=== PATIENT | male | born 1995 | race Hispanic/Latino ===

== ENCOUNTER 2017-09-30 06:17 | Emergency (ER) | payer BC ==
[~2017-09-30] VITALS: Ht 175.3 cm; Wt 79.4 kg
[~2017-09-30 06:17] MED LIST: BACL10TA PO; BISA10SU50 RC; CARB100T4 PO; CHOL100011 PO; DIAZ1KIT7 RC; ESCI10TA PO; FAMO20TA5 PO; LACT1CAP61 PO; OXYC-470 PO; PROP20TA PO; TRAZ150T57 PO; [UNRECOGNIZED DRUG - CODE] PO
--- NOTE | 2017-09-30 07:10 | ER.PDOC ---
General Chief Complaint: General Complaint Stated Complaint: PULLED OUT FEEDING TUBE TRAVEL OUT OF US: No Time seen by MD: 06:30 Source: family Exam Limitations: clinical condition History of Present Illness Initial Comments Pt pulled out his gastrostomy feeding tube this AM. Timing/Duration: 1 hour Allergies: Coded Allergies: No Known Allergies (Unverified , 12/19/15) Home Meds Reported Medications Carbamazepine (CARBAMAZEPINE) 100 Mg Tab.chew, 100 MG PO QID, TAB.CHEW 12/19/15 Cholecalciferol (Vitamin D3) (VITAMIN D) 1,000 Unit Capsule, 1000 UNIT PO DAILY , CAPSULE 12/19/15 Escitalopram Oxalate (ESCITALOPRAM OXALATE) 10 Mg Tablet, 1 TAB PO DAILY, #30 TAB 3 Refills 12/19/15 L. Rhamnosus Gg/Inulin (CULTURELLE CAPSULE) 1 Each Cap.sprink, 1 EACH PO DAILY 12/19/15 Baclofen (BACLOFEN) 10 Mg Tablet, 1 TAB PO TID, #90 TAB 2 Refills 12/19/15 Propranolol Hcl (PROPRANOLOL HCL) 20 Mg Tablet, 1 TAB PO TID, #60 TAB 2 Refills 12/19/15 Trazodone Hcl (TRAZODONE HCL) 150 Mg Tablet, 150 MG PO HS, TABLET 12/19/15 Diazepam (DIAZEPAM) 1 Each Kit, 1 EACH RC DAILY, KIT 12/19/15 Oxycodone Hcl (OXYCODONE HCL) 5 Mg Tablet, 5 MG PO DAILY Y for PAIN, TABLET 12/19/15 Famotidine (FAMOTIDINE) 20 Mg Tablet, 1 TAB PO BID, #60 TAB 5 Refills 12/19/15 Psyllium Husk/Aspartame (Metamucil Sugar-Free Powder) 3.4 Gram/5.8 Gram Powder, 283 GM PO DAILY 12/19/15 Bisacodyl (MAGIC BULLET) 10 Mg Supp.rect, 10 MG RC DAILY, SUPP.RECT 12/19/15 Past Medical History Medical History: other (Traumatic brain injury.) Surgical History: other (Gastrostomy.) Family History Significant Family History: no pertinent family hx Social History Smoking: non-smoker Alcohol Use: none Drug Use: none Review of Systems Constitutional: no symptoms reported EENTM: no symptoms reported Respiratory: no symptoms reported Cardiovascular: no symptoms reported Gastrointestinal: no symptoms reported Genitourinary: no symptoms reported Musculoskeletal: no symptoms reported Skin: no symptoms reported Physical Exam General Appearance: No Apparent Distress, WD/WN, Other (Non verbal.) EENT: eyes nml inspection, nml ENT inspection, pharynx nml Neck: Non-Tender, Full Range of Motion, Supple Respiratory: chest non-tender, lungs clear, normal breath sounds, no respiratory distress CVS: reg rate & rhythm, no murmur, no gallop, pulses nml Gastrointestinal: Normal Bowel Sounds, No Organomegaly, No Pulsatile Mass, Non Tender, Other (LUQ gastrostomy stoma. 16 gauge Fr witt inserted.) Back: Normal Inspection, No CVA Tenderness Extremities: Non-Tender, No Pedal Edema Neurologic/Psychiatric: Alert Progress Progress 16 Fr witt inserted through the gastrostomy stoma. Departure Time of Disposition: 07:13 Disposition: 01 HOME, SELF-CARE Impression: Primary Impression: Dislodged gastrostomy tube Condition: Stable Referrals: ARACELY PIZARRO MD (PCP) PRIMARY CARE PROVIDER Additional Instructions: Pt was referred to Dr Durbin for evaluation. Duration or Time Spent with Pa: 30mins MITCH CLIFTON MD Sep 30, 2017 07:10
--- NOTE | 2017-09-30 07:15 | NUR ---
DR JAGRUTI CLIFTON ON PHONE WITH DR CHAND
--- NOTE | 2017-09-30 07:16 | NUR ---
DR JAGRUTI CHAND IN THE ED AT THIS TIME
--- NOTE | 2017-09-30 07:52 | DIREP ---
PROCEDURE:XRAY ABDOMEN SINGLE VW COMPARISON:[facility], [place], SMALL BOWEL SERIES, 12/22/2015, 08:54 PM. [facility], [place], XRAY CHEST SINGLE VW, 01/01/2016, 08:36 AM. [facility], [place], XR BARIUM SWALLOW - MODIFIED, 05/05/2016, 10:18 AM. [facility], [place], XRAY ABDOMEN SINGLE VW, 12/28/2015, 08:38 AM. INDICATIONS:verify placement of tube gastro down feeding tube FINDINGS: Inferior abdomen and pelvis are not included on the film. BOWEL GAS PATTERN:Oral contrast is present in the left lower abdomen, apparently injected through the patient's feeding tube. Contrast appears to be within a loop of jejunum. No extravasated contrast is visible. CALCIFICATIONS:None significant. LUNG BASES:Clear. BONES:Normal. OTHER:No additional findings. CONCLUSION:Oral contrast appears to be within the jejunum in the left lower abdomen. Dictated by: Nicho Barreto M.D. on 09/30/2017 at 07:43 AM
[2017-09-30 08:11] VITALS: BP 137/55
[2017-09-30 08:12] VITALS: BP 138/55
== END 2017-09-30 08:12 | disposition home or self-care (01) ==
LOC: ER 06:17
DX: K94.23 Gastrostomy malfunction (principal); Y83.8 Other surgical procedures as the cause of abnormal reaction of the patient, or of later complication, without mention of misadventure at the time of the procedure
CPT/HCPCS: 43760; 51702; 74018; 99284; 74000

== ENCOUNTER → 2017-11-11 | Outpatient (CLI) | payer BC ==
[2017-11-11 10:51] LABS: BASOPHIL % 0.1 % (0.0-0.2); HEMOGLOBIN 13.9 g/dL (13.9-16.3); LYMPHOCYTES # 0.5 10^3/uL (1.0-4.8); LYMPHOCYTES % 3.6 % (24.0-44.0); MEAN CELL HGB 30.1 pg (26-34); MEAN CELL HGB CONCENTRATION 33.9 g/dL (33-37); MEAN CORP VOLUME 88.7 fL (78-100); MEAN PLATELET VOLUME 10.2 fL (7.8-11.0); MONOCYTES # 0.6 10^3/uL (0.3-0.8); MONOCYTES % 4.3 % (5.0-12.0); NEUTROPHILS % 91.9 % (41.0-85.0); RED CELL DISTRIBUTION WIDTH 12.6 % (11.5-14.5); WHITE BLOOD CELL 14.1 10^3/uL (4.5-11.0)
--- NOTE | 2017-11-11 11:08 | DIREP ---
PROCEDURE:CHEST 2 VIEWS COMPARISON:[facility], CR, XRAY CHEST SINGLE VW, 01/01/2016, 08:36 AM. INDICATIONS:COUGH-CHEST PAIN- EPIGASTRIC PAIN FINDINGS: LUNGS/PLEURA:No significant pulmonary parenchymal abnormalities. No effusions. The lungs are clear. No pneumonia, heart failure or effusions are seen. VASCULATURE:Normal. Unremarkable pulmonary vasculature. CARDIAC:Normal. No cardiac silhouette abnormality or cardiomegaly. MEDIASTINUM:Normal. No visible mass or adenopathy. BONES:Normal. No fracture or visible bony lesion. OTHER:Increased gas in the abdomen below the diaphragms along with retained fecal material. CONCLUSION:No change, no active disease. Dictated by: Ronny Johnston MD on 11/11/2017 at 11:06 AM
[2017-11-11 11:13] LABS: CALCIUM 9.4 mg/dL (8.4-10.5); CARBON DIOXIDE 24.8 mmol/L (20.0-32)
[2017-11-11 14:14] LABS: DIFFERENTIAL COMMENT NORMAL; LYMPHOCYTE 4 % (25-36); MONOCYTE 1 % (3-9); SEGMENTED NEUTROPHILS 95 % (31-76)
== END | disposition home or self-care (01) ==
LOC: RAD 10:28
PROVIDERS: ATTEND Pediatrics
DX: R07.9 Chest pain, unspecified (principal); R10.13 Epigastric pain; R53.81 Other malaise; R05 Cough
CPT/HCPCS: 36415; 71046; 80053; 85025; 85651; 86140; 86677

== ENCOUNTER 2017-11-20 04:17 | Day surgery (SDC) | payer BC ==
[~2017-11-20] VITALS: Ht 177.8 cm; Wt 72.6 kg
[~2017-11-20 04:17] MED LIST changes: +BACL20TA PO; +CARB200T PO; +ESCI10TA10 PO; +PANT40TA3 PO
[2017-11-20] MEDS ORDERED: LACTATED RINGERS 1,000 ML ONE (05:07)
[2017-11-20] MEDS ORDERED: LACTATED RINGERS 1,000 ML IV SCH (06:00)
[2017-11-20 06:25] VITALS: BP 115/76
[2017-11-20] MEDS ORDERED: TYLENOL ONE (07:21)
[2017-11-20] MEDS ORDERED: VERSED ONE (07:22)
[2017-11-20] MEDS ORDERED: LIDOCAINE 2% VIAL ONE (07:27)
[2017-11-20] MEDS ORDERED: SUBLIMAZE ONE ×2 (07:28→09:05)
[2017-11-20] MEDS ORDERED: DIPRIVAN IV ONE (07:28)
[2017-11-20 09:35] VITALS: BP 126/65
[2017-11-20 09:50] VITALS: BP 119/74
[2017-11-20 10:05] VITALS: BP_SYST 114; BP_SYST 119; BP_DIAS 80
--- NOTE | 2017-11-20 10:16 | DIREP ---
PROCEDURE:XRAY ABDOMEN SINGLE VW COMPARISON:[facility], CR, XRAY ABDOMEN SINGLE VW, 09/30/2017, 07:30 AM. INDICATIONS:POST PED TUBE INSERTION FINDINGS: Lower abdomen and pelvis are not included on the film. BOWEL GAS PATTERN:Oral contrast is present in the right lower abdomen, apparently injected through the patient's feeding tube. Contrast appears to be within a loop of jejunum. No extravasated contrast is visible. CALCIFICATIONS:None significant. LUNG BASES:Clear. BONES:Normal. OTHER:No additional findings. CONCLUSION: 1. Limited for the lower abdomen and pelvis. Contrast is identified and proximal loops of jejunum. Dictated by: Eulogio Bhatti MD on 11/20/2017 at 10:13 AM
[2017-11-20 10:35] VITALS: BP 138/88
[2017-11-20 10:50] VITALS: BP 122/64
--- NOTE | 2017-11-20 12:37 | OPH ---
DATE OF SURGERY: PREOPERATIVE DIAGNOSES: 1. History of feeding tube malfunction. 2. History of traumatic brain injury. POSTOPERATIVE DIAGNOSES: 1. Feeding tube malfunction with replacement. 2. History of traumatic brain injury. SURGEON: Kumar Durbin DO QUALITY ASSURANCE MONITOR FINAL: OR staff. ANESTHESIA: Monitored anesthesia care by Rosibel Villalba CRNA. PROCEDURES PERFORMED: 1. Exchange of jejunal feeding tube. 2. Percutaneous endoscopy via jejunostomy site. SPECIMENS: None. ESTIMATED BLOOD LOSS: 2 mL. DESCRIPTION OF PROCEDURE: The patient is a 22-year-old male known from previous evaluation. Prior to procedure, informed consent was obtained. At time of procedure, he was taken to the operative suite and placed in supine position. After initial sedation, we elected not to perform the EGD. The existing 16-Canadian Yanes that was in the jejunal feeding tract was removed. Sequential Hegar dilators were used to dilate the tract. To confirm patency, esophagogastroduodenoscope was advanced through the jejunostomy site by the jejunum which was inflated to allow exposure. A repeat dilation was performed and attempts were made and subsequently a 22-Canadian jejunal feeding tube was passed through the percutaneous opening. It was cut to length and softened. Once it was advanced to depth, the balloon was inflated with approximately 7 mL of saline and withdrawn. It was secured with the flange. Next, contrast was diluted and pushed down through the lumen. It was secured with a dressing. The patient was subsequently delivered to the recovery room. An x-ray was performed. There was noted to be no signs of leak and there was noted to be contrast in the distal small bowel. The patient appeared to tolerate this procedure well. There were no acute complications noted. Kumar Durbin DO DR: CHAD/dara JOB# [id number] CC: Marika Bueno MD [facility] CENTERMarino
== END 2017-11-20 11:00 | disposition home or self-care (01) | DRG 394 ==
LOC: SURG 04:17
PROVIDERS: ATTEND Surgery
DX: K94.13 Enterostomy malfunction (principal); K21.9 Gastro-esophageal reflux disease without esophagitis; G40.89 Other seizures; Y83.9 Surgical procedure, unspecified as the cause of abnormal reaction of the patient, or of later complication, without mention of misadventure at the time of the procedure; Z79.899 Other long term (current) drug therapy; Z98.890 Other specified postprocedural states; Z93.4 Other artificial openings of gastrointestinal tract status; Z79.01 Long term (current) use of anticoagulants; Z87.820 Personal history of traumatic brain injury
CPT/HCPCS: 49451; 74018; J2001; J2250; J3010 ×2; J3490; J7120; 74000

== ENCOUNTER → 2019-02-28 | Outpatient (CLI) | payer MEDICARE, MEDICAID ==
[2019-02-28 12:11] LABS: BASOPHIL % 0.1 % (0.0-0.2); EOSINOPHIL % 0.5 % (0.0-5.0); HEMOGLOBIN 15.1 g/dL (13.9-16.3); LYMPHOCYTES # 0.6 10^3/uL (1.0-4.8); LYMPHOCYTES % 7.2 % (24.0-44.0); MEAN CELL HGB 30.4 pg (26-34); MEAN CELL HGB CONCENTRATION 33.6 g/dL (33-37); MEAN CORP VOLUME 90.7 fL (78-100); MEAN PLATELET VOLUME 11.6 fL (7.8-11.0); MONOCYTES # 1.2 10^3/uL (0.3-0.8); MONOCYTES % 14.1 % (5.0-12.0); NEUTROPHIL # 6.5 10^3/uL (1.8-7.7); WHITE BLOOD CELL 8.3 10^3/uL (4.5-11.0)
[2019-02-28 12:31] LABS: CALCIUM 9.4 mg/dL (8.4-10.5); CARBON DIOXIDE 29.3 mmol/L (20.0-32)
--- NOTE | 2019-02-28 13:37 | DIREP ---
PROCEDURE:XR ABDOMEN 2 VIEWS COMPARISON:[facility], CT, CT-CHEST W ABD W PELVIS W/ CONTRAST, 12/22/2015, 04:57 PM. [facility], CR, XRAY ABDOMEN SINGLE VW, 11/20/2017, 09:28 AM. INDICATIONS:N/V, ABD PAIN TECHNIQUE:Flat and upright views of the abdomen are provided. FINDINGS: BOWEL GAS PATTERN:Diffuse small bowel dilatation, measuring up to 5.5 cm. Air-fluid levels identified on upright film. A percutaneous enteric catheter projects over the abdomen. CALCIFICATIONS:None significant. LUNG BASES:Clear. BONES:Normal. OTHER:No additional findings. CONCLUSION: 1. Findings concerning for small bowel obstruction. Dictated by: Luis A Johnston MD on 02/28/2019 at 01:39 PM
== END | disposition home or self-care (01) ==
LOC: RAD 11:35
PROVIDERS: ATTEND Pediatrics
DX: R10.13 Epigastric pain (principal); E86.0 Dehydration
CPT/HCPCS: 36415; 74019; 80053; 85025; 86140; 86677

== ENCOUNTER 2019-03-01 05:45 | Inpatient (IN) | payer MEDICARE, MEDICAID ==
[~2019-03-01] VITALS: Ht 172.7 cm; Wt 63.8 kg
[2019-03-01 06:26] VITALS: BP 127/84
[2019-03-01] MEDS ORDERED: NS 1000ML 1,000 ML IV ONE (07:00)
[2019-03-01] MEDS ORDERED: TEGRETOL PO SCH (09:00)
[2019-03-01] MEDS ORDERED: PEPCID PO SCH (09:00)
[2019-03-01] MEDS ORDERED: VITAMIN D PO SCH (09:00)
[2019-03-01] MEDS ORDERED: INDERAL PO PRN (09:00)
[2019-03-01] MEDS ORDERED: LIORESAL PO SCH (09:00)
[2019-03-01] MEDS ORDERED: OXY-IR PO PRN (09:00)
[2019-03-01] MEDS ORDERED: BISAC-EVAC RC SCH (09:00)
[2019-03-01] MEDS ORDERED: METAMUCIL PO SCH (09:00)
[2019-03-01] MEDS ORDERED: PROTONIX PO SCH (09:00)
[2019-03-01] MEDS ORDERED: CeleXA PO SCH (09:00)
--- NOTE | 2019-03-01 09:44 | NUR ---
MEDS THIS NURSE REMOVED AND TICKED OFF MEDS FOR PATIENT. BEFORE ADMINISTERING TO PT ALL MEDS EXCEPT IV FLUIDS WERE D/C. UNDID RESULTS TECHNICIAN.
[2019-03-01] MEDS: D5W-1/2 NS/KCL 20MEQ 1,000 ML IV SCH ×3 (09:58→21:54)
[2019-03-01 10:06] LABS: BASOPHIL % 0.1 % (0.0-0.2); EOSINOPHIL # 0.1 10^3/uL (0.0-0.2); EOSINOPHIL % 0.9 % (0.0-5.0); HEMOGLOBIN 14.5 g/dL (13.9-16.3); LYMPHOCYTES # 0.5 10^3/uL (1.0-4.8); LYMPHOCYTES % 6.7 % (24.0-44.0); MEAN CELL HGB 30.8 pg (26-34); MEAN CELL HGB CONCENTRATION 33.6 g/dL (33-37); MEAN CORP VOLUME 91.5 fL (78-100); MEAN PLATELET VOLUME 11.4 fL (7.8-11.0); MONOCYTES % 12.8 % (5.0-12.0); NEUTROPHIL # 6.2 10^3/uL (1.8-7.7); NEUTROPHILS % 79.2 % (41.0-85.0); RED CELL DISTRIBUTION WIDTH 14.8 % (11.5-14.5); WHITE BLOOD CELL 7.9 10^3/uL (4.5-11.0)
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
--- NOTE | 2019-03-01 10:17 | DIREP ---
PROCEDURE:CT ABDOMEN/PELVIS W/O CONTRAST COMPARISON:[facility], CT, CT-CHEST W ABD W PELVIS W/ CONTRAST, 12/22/2015, 04:57 PM. INDICATIONS:N/V TECHNIQUE:Axial images were created through the abdomen and pelvis without intravenous contrast material. Oral contrast was administered. Sagittal and coronal reconstructions were performed from source images. FINDINGS: LOWER CHEST:Dependant atelectasis. LIVER: No hepatic lesion. BILIARY: Gallbladder is unremarkable, no intra or extrahepatic biliary dilation. PANCREAS: Unremarkable. SPLEEN: Normal, nonenlarged. KIDNEYS: No renal mass. No hydronephrosis or collecting system stone identified. ADRENALS: Normal. AORTA/VASCULAR: Normal. No aneurysm. RETROPERITONEUM: No adenopathy or mass. BOWEL/MESENTERY: Gastrojejunostomy tube. The jejunum is dilated measuring up to 4 cm. Oral contrast is seen within the stomach and proximal/dilated jejunum. The transition point is in the left mid quadrant at soft tissue changes related to a previous jejunostomy tube site. Appendix normal. ABDOMINAL WALL: Normal. No mass or hernia. URINARY BLADDER: Inherently limited evaluation of the wall; unremarkable for level of distension. PELVIS: Prostatic tissue present. No adenopathy. BONES: No bony lesion or fracture. OTHER: No free air. Small free fluid in the pelvis. CONCLUSION: 1. Dilated jejunum with transition point in the left mid abdomen at previous percutaneous jejunostomy site. Findings are suspicious for developing obstruction. Dictated by: Clarissa Chino MD on 03/01/2019 at 10:08 AM
[2019-03-01 10:44] LABS: CALCIUM 9.1 mg/dL (8.4-10.5); CARBON DIOXIDE 31.2 mmol/L (20.0-32)
--- NOTE | 2019-03-01 11:52 | DIREP ---
PROCEDURE:XRAY ABDOMEN SINGLE VW COMPARISON:[facility], CT, CT ABD/PELVIS W/O, 03/01/2019, 09:17 AM. [facility], CR, XRAY ABDOMEN SINGLE VW, 11/20/2017, 09:28 AM. [facility], CR, XRAY ABDOMEN SINGLE VW, 09/30/2017, 07:30 AM. INDICATIONS:NGT placement FINDINGS: BOWEL GAS PATTERN:Dilated small bowel loops throughout the abdomen, measuring up to 5.5 cm. Distal aspect of nasogastric catheter terminates above the GE junction. Gastrojejunostomy catheter terminates overlying the left lower quadrant. CALCIFICATIONS:None significant. LUNG BASES:Clear. BONES:Degenerative change without evidence of acute osseus abnormality. OTHER:No additional findings. CONCLUSION: 1. Findings consistent with small bowel obstruction. 2. Nasogastric catheter terminates above the GE junction. Recommend advancement. 3. Gastrojejunostomy catheter terminates overlying the left lower quadrant. Dictated by: Luis A Johnston MD on 03/01/2019 at 11:46 AM
[2019-03-01 12:06] LABS: DIFFERENTIAL COMMENT NORMAL; EOSINOPHIL 1 % (1-4); LYMPHOCYTE 5 % (25-36); MONOCYTE 13 % (3-9); SEGMENTED NEUTROPHILS 81 % (31-76)
[2019-03-01 14:01] VITALS: BP 121/71
--- NOTE | 2019-03-01 14:14 | DIREP ---
PROCEDURE:XRAY ABDOMEN SINGLE VW COMPARISON:[facility], CR, XRAY ABDOMEN SINGLE VW, 03/01/2019, 11:16 AM. [facility], CR, XRAY ABDOMEN SINGLE VW, 11/20/2017, 09:28 AM. INDICATIONS:NGT placement FINDINGS: BOWEL GAS PATTERN:Dilated small bowel loops with scattered air-fluid levels throughout the abdomen. Interval advancement of nasogastric catheter now terminating overlying the left upper quadrant, presumably within the stomach. Gastrojejunostomy catheter terminates overlying the left lower quadrant. CALCIFICATIONS:None significant. LUNG BASES:Clear. BONES:Degenerative change without evidence of acute osseus abnormality. OTHER:No additional findings. CONCLUSION: 1. Interval advancement of nasogastric catheter, now terminating overlying the left upper quadrant. Presumably within the stomach. 2. Findings concerning for small bowel obstruction. 3. Gastrojejunostomy in stable position. Dictated by: Luis A Johnston MD on 03/01/2019 at 02:12 PM
[2019-03-01] MEDS: ATIVAN IV PRN ×2 (15:57→21:53)
[2019-03-01] MEDS ORDERED: MORPHINE SULFATE IV PRN (16:00)
--- NOTE | 2019-03-01 18:02 | HPH ---
ADMIT DATE: 03/01/2019 The patient is being admitted as an inpatient. PRIMARY CARE PROVIDER: Marika Bueno MD ADMITTING DIAGNOSES: 1. Abdominal pain with nausea and vomiting. 2. Partial small bowel obstruction. 3. Dehydration. 4. History of anoxic brain injury. CHIEF COMPLAINT: He is still throwing up. HISTORY OF PRESENT ILLNESS: As follows: The patient is a 23-year-old young gentleman who has a history of anoxic brain injury and had a tracheostomy with a G-tube placement in the past. He no longer has the tracheostomy, but he has a G-tube for feeds and for increasing calories, but he was doing fine and his last hospitalization was over 3 years ago. Family reports that he had eaten some foods on Thursday and he started to have increasing belly pain and he was just moaning and then he started to have nausea and nonbilious vomiting. He did that a couple of times and family stopped his G-tube feeds and started him on Pedialyte. It seemed like he was tolerating some of it; however, he started to have increasing vomiting again. No fever has been reported. He has had hard bowel movements lately and less bowel movements as well. No syncope reported. No falls, no trauma. When he did come to see me in my office again, I had done labs on him, which looked okay at that time. He was clinically dehydrated, however and family opted to do Pedialyte for the next 24 hours, but since he is having more emesis now, I am putting him in the hospital. PAST MEDICAL HISTORY: Again, he does have anoxic brain injury. PAST SURGICAL HISTORY: He had a tracheostomy. He had actually a jejunostomy placement and then now he has a G-tube placement for G-tube feeds. ALLERGIES: No known drug allergies. SOCIAL HISTORY: He does not smoke. No illicit drugs, no alcohol reported. FAMILY HISTORY: Noncontributory for this admission. MEDICATIONS: Medications he is currently on include propranolol, Metamucil, Protonix, oxycodone at night, Celexa, vitamin D3, Tegretol, baclofen. PHYSICAL EXAMINATION: VITAL SIGNS: When he first came in, temperature was 98.4, pulse rate was 69, respirations 18, blood pressure is 112/84, O2 sats of 96% on room air. My physical exam is as follows: GENERAL: When I saw him, he is moaning and it appears like he is having a little bit of pain. HEENT: Oropharynx is clear. NECK: Supple. HEART: S1, S2 audible. No murmurs. LUNGS: Clear bilaterally. ABDOMEN: He had some hypoactive bowel sounds. Abdomen was a bit distended. G-tube site looks good. EXTREMITIES: No pitting edema. No rashes, no petechiae, no purpura. LABORATORY DATA: Did labs. CBC looks okay. Chemistry panel looked okay. LFTs were normal. Coags were normal. IMAGING STUDIES: X-rays of the abdomen showed some dilated small bowel noted and was suspicious for a small bowel obstruction. ASSESSMENT: We have this young gentleman with increasing nausea, vomiting and dehydration. I will go ahead and keep him n.p.o. and get a CT scan of the abdomen and pelvis with p.o. contrast and if he does have a bowel obstruction, I will go ahead and put second NG tube down to low intermittent suction and see how he does throughout the day. Marika Bueno MD DR: YAN/dara JOB# [id number]
--- NOTE | 2019-03-01 18:47 | NUR ---
report received report from offgoing shift
[2019-03-01 19:36] VITALS: BP 123/87
[2019-03-01] MEDS ORDERED: PROTONIX IV IV SCH (21:00)
[2019-03-01 23:45] VITALS: BP 120/80
[2019-03-02] MEDS: ATIVAN IV PRN (03:55)
[2019-03-02 05:13] VITALS: BP 116/69
[2019-03-02 08:43] VITALS: BP 117/58
--- NOTE | 2019-03-02 09:34 | DIREP ---
PROCEDURE:XR ABDOMEN 2 VIEWS COMPARISON:[facility], CR, XRAY ABDOMEN 2VW, 02/28/2019, 11:46 AM. [facility], CR, XRAY ABDOMEN 2VW, 11/16/2017, 12:15 PM. INDICATIONS:N/V TECHNIQUE:Flat and upright views of the abdomen are provided. FINDINGS: BOWEL GAS PATTERN:Borderline small bowel dilatation, relatively decompressed when compared to prior study. No definite air-fluid levels are identified. Nasogastric catheter terminates overlying the left upper quadrant, however, the side port terminates likely above the GE junction. Advancement is recommended. Gastrojejunostomy catheter is identified terminating overlying the left lower quadrant. Residual oral contrast seen within the colon. CALCIFICATIONS:None significant. LUNG BASES:Clear. BONES:Normal. OTHER:No additional findings. CONCLUSION: 1. Borderline small bowel dilatation with relative decompression when compared to prior study. Oral contrast now progressed to the colon. 2. Recommend advancement of nasogastric catheter. Side-port terminates above the GE junction. 3. Stable position of balloon retention gastrojejunostomy catheter. Dictated by: Luis A Johnston MD on 03/02/2019 at 09:30 AM
[2019-03-02] MEDS: D5W-1/2 NS/KCL 20MEQ 1,000 ML IV SCH (10:36)
--- NOTE | 2019-03-02 11:19 | NUR ---
NG TUBE NG TUBE DC'D AT THIS TIME PER DR. PIZARRO'S ORDERS, TIP INTACT. PT HAS BEEN WITHOUT ANY ABDOMINAL PAIN OR NAUSEA. PARENTS AT BEDSIDE.
--- NOTE | 2019-03-02 11:24 | NUR ---
FEEDINGS EXPLAINED TO PARENTS THAT DR. PIZARRO WANTS PATIENT TO RESUME HIS ROUTINE G TUBE FEEDINGS; THEY REPLIED THAT THEY WILL HAVE TO HAVE SOMEONE TO BRING THE FORMULA OR THEY WILL HAVE TO GO GET IT.
[2019-03-02 12:50] VITALS: BP 114/67
--- NOTE | 2019-03-02 14:23 | DSH ---
DATE OF DISCHARGE: 03/02/2019 ADMITTING DIAGNOSES: Nausea, vomiting with dehydration and partial small-bowel obstruction with history of anoxic brain injury. DISCHARGE DIAGNOSIS: Resolved partial small-bowel obstruction. HOSPITAL COURSE: The patient is a 23-year-old young gentleman who does have a history of anoxic brain injury and had a G-tube as well as a jejunostomy tube for feeds. He was having increasing nonbilious vomiting for several days now and this did not improve with just simple hydration at home. X-rays did show dilated small bowels suspicious for partial small-bowel obstruction versus full complete small-bowel obstruction and his belly was distended. White count was normal. I went ahead and put him in the hospital and stuck an NG tube down for decompression and we did get over a liter of intestinal content, but I continued the low intermittent suction throughout the day. I gave him some IV fluids for hydration. Overnight, he has done very well. X-rays this morning does show that his small bowel dilatation has remarkably improved and contrast has made it all the way down through his colon. So he is tolerating liquids and no longer throwing up and he does have very good bowel sounds at this point, his abdomen is soft. So we got rid of the NG tube late this morning and at this point, he is tolerating p.o. intake. He will be discharged later on today and he will continue his home medications and I have asked the family to go ahead and start him back on his G-tube feeds only right now which is one can with each feed for the next couple of days and then advance as tolerated, back to his usual maintenance feeds. He is to follow up with me next Thursday where I will reassess and see how he is doing at that point. Marika Bueno MD DR: YAN/dara JOB# [id number]
[2019-03-02 15:30] VITALS: BP 114/67
--- NOTE | 2019-03-02 16:00 | NUR ---
Discharge Patient discharged home with his parents. Teaching provided and a packet given to the parent's. Picc line pulled, catheter intact. Pressure held for 10 minutes with rolled gauze, opsite placed. Patient tolerated removal well. Patient to the exit in his own wheelchair, with this RN to transport belongings on a cart. Mother took responsibility for Patient's Hygiene needs. Peg/gastric feeding tube intact.
== END 2019-03-02 15:00 | disposition home or self-care (01) | DRG 390 ==
LOC: MS 05:45
PROVIDERS: ADMIT Pediatrics; ATTEND Pediatrics
PROC: 0D9670Z Drainage of Stomach with Drainage Device, Via Natural or Artificial Opening (ICD-10-PCS; principal; 2019-03-02)
DX: K56.600 Partial intestinal obstruction, unspecified as to cause (principal); E86.0 Dehydration; Z87.820 Personal history of traumatic brain injury; Z93.1 Gastrostomy status; Z93.4 Other artificial openings of gastrointestinal tract status
CPT/HCPCS: 36415; 36569; 74018; 74019; 74176; 80048; 80053; 80076; 82948; 85025; 85610; 86140; 86677; C9113; G0378; J2060; J2270; J7030; J7070; Q9963

== ENCOUNTER 2019-03-03 23:32 | Emergency (ER) | payer MEDICARE, MEDICAID ==
[~2019-03-03] VITALS: Ht 177.8 cm; Wt 63.5 kg
[2019-03-03 23:41] VITALS: BP 125/80
--- NOTE | 2019-03-03 23:47 | ER.PDOC ---
General Chief Complaint: Requesting Medical Care Stated Complaint: VOMITING Time seen by MD: 23:46 Source: family Exam Limitations: clinical condition History of Present Illness Initial Comments Pt was discharged yesterday for observation after several episodes of vomiting, no obstruction was found. Today he vomited once two hours ago, but, not after that. Had regular BM's today Severity/Quality: mild Associated Symptoms (vomiting): mild vomiting Prior symptoms/Treatment: Similar symptoms previous, Recenly Seen, Treated by Doctor, Recently Hospitalized Allergies: Coded Allergies: No Known Allergies (Unverified , 11/18/17) Home Meds Reported Medications Pantoprazole Sodium (PROTONIX) 40 Mg Tablet.dr, 1 TAB PO DAILY, #30 TAB 5 Refills 11/18/17 Escitalopram Oxalate (LEXAPRO) 10 Mg Tablet, 1 TAB PO DAILY, #90 TAB 3 Refills 11/18/17 Baclofen (BACLOFEN) 20 Mg Tablet, 25 MG PO QID, TABLET 11/18/17 Carbamazepine (TEGRETOL) 200 Mg Tablet, 1 TAB PO QID, #60 TAB 1 Refill 11/18/17 Cholecalciferol (Vitamin D3) (VITAMIN D) 1,000 Unit Capsule, 1000 UNIT PO DAILY, CAPSULE 12/19/15 Propranolol Hcl (PROPRANOLOL HCL) 20 Mg Tablet, 1 TAB PO DAILY24 PRN for HYPERTENSION, #60 TAB 2 Refills 12/19/15 Trazodone Hcl (TRAZODONE HCL) 150 Mg Tablet, 150 MG PO HS, TABLET 12/19/15 Oxycodone Hcl (OXYCODONE HCL) 5 Mg Tablet, 5 MG PO DAILY PRN for PAIN, TABLET 12/19/15 Famotidine (FAMOTIDINE) 20 Mg Tablet, 1 TAB PO DAILY24, #60 TAB 5 Refills 12/19/15 Psyllium Husk/Aspartame (Metamucil Sugar-Free Powder) 3.4 Gram/5.8 Gram Powder, 283 GM PO DAILY 12/19/15 Bisacodyl (MAGIC BULLET) 10 Mg Supp.rect, 10 MG RC DAILY, SUPP.RECT 12/19/15 Vital Signs First Vital Signs Date Time Temp Pulse Resp B/P (MAP) Pulse Ox O2 Delivery O2 Flow Rate FiO2 03/02/19 15:30 210.0 85 03/03/19 23:41 18 125/80 (95) 95 Room Air Last Vital Signs Date Time Temp Pulse Resp B/P (MAP) Pulse Ox O2 Delivery O2 Flow Rate FiO2 03/03/19 23:41 99.7 90 18 03/03/19 23:41 95 Room Air 03/03/19 23:41 125/80 (95) Past Medical History Surgical History: other Social History Drug Use: none Gastrointestinal: see HPI All Other Systems: Reviewed and Negative Physical Exam General Appearance: No Apparent Distress, WD/WN HEENT: PERRL/EOMI, Normal ENT Inspection, TMs Normal, Pharynx Normal Neck: Non-Tender, Full Range of Motion, Supple, Normal Inspection Respiratory: chest non-tender, lungs clear, normal breath sounds, no respiratory distress, no accessory muscle use Cardiovascular: Normal Peripheral Pulses, Regular Rate, Rhythm, No Edema, No Gallop, No JVD, No Murmur Gastrointestinal: Normal Bowel Sounds, No Organomegaly, Non Tender, Soft, Other (there is a PEG tube) Back: Normal Inspection, No CVA Tenderness, No Vertebral Tenderness Extremities: Normal Range of Motion, Non-Tender, Normal Inspection, No Pedal Edema, No Calf Tenderness, Normal Capillary Refill, Pelvis Stable Neurologic/Psychiatric: wet pan operator II-XII NML as Tested, No Motor/Sensory Deficits, Alert, Normal Mood/Affect, Oriented x 3 Skin: Normal Color, Warm/Dry Lymphatic: No Adenopathy Results/Orders Results/Orders Orders - LEV BORGES MD Ondansetron (Zofran Odt) (03/04/19 00:00) Xr Abd 1v (03/04/19 00:00) Ondansetron (Zofran Odt) (03/04/19 00:08) Vital Signs Date Time Temp Pulse Resp B/P (MAP) Pulse Ox O2 Delivery O2 Flow Rate FiO2 03/03/19 23:41 99.7 90 18 03/03/19 23:41 99.7 90 18 95 Room Air 03/03/19 23:41 99.7 90 18 125/80 (95) 95 Room Air 03/02/19 15:30 210.0 85 Administered Medications Medications (Trade) Dose Ordered Sig/Chelly Route PRN Reason Start Time Stop Time Status Last Admin Dose Admin Ondansetron HCl (Zofran Odt) 4 mg STAT STAT SL 03/04/19 00:00 03/04/19 00:04 DC 03/04/19 00:13 4 MG Departure Time of Disposition: 01:02 Disposition: 02 XFER SHT-TRM HOSP Impression: Primary Impression: Vomiting Additional Impression: Small bowel obstruction Condition: Stable Referrals: ARACELY PIZARRO MD (PCP) PRIMARY CARE PROVIDER Duration or Time Spent with Pa: 20 Problem Qualifiers LEV BORGES MD Mar 03, 2019 23:46
[2019-03-04] MEDS ORDERED: ZOFRAN ODT SL STA
[2019-03-04] MEDS ORDERED: ZOFRAN ODT ONE (00:08)
--- NOTE | 2019-03-04 00:54 | DIREP ---
PROCEDURE:XRAY ABDOMEN SINGLE VW COMPARISON:[facility], CR, XRAY ABDOMEN SINGLE VW, 03/01/2019, 12:26 PM. [facility], CR, XRAY ABDOMEN SINGLE VW, 03/01/2019, 11:16 AM. INDICATIONS:vomiting FINDINGS: BOWEL GAS PATTERN:Dilated small bowel with paucity of gas in the colon. GJ tube noted with the tip in the upper pelvis. CALCIFICATIONS:None significant. LUNG BASES:Clear. BONES:Normal. OTHER:No additional findings. CONCLUSION:Small bowel obstruction. Dictated by: Joaquin Arce M.D. on 03/04/2019 at 00:52 AM
--- NOTE | 2019-03-04 01:27 | NUR ---
[facility] Dr. Burnham on phone with [facility] transfer line
[2019-03-04] MEDS ORDERED: NS 1000ML 1,000 ML IV ONE (02:00)
[2019-03-04 02:07] VITALS: BP 118/87
--- NOTE | 2019-03-04 02:41 | DIREP ---
PROCEDURE:CHEST 1 VIEW COMPARISON:[facility], CR, XRAY ABDOMEN SINGLE VW, 03/04/2019, 00:08 AM. INDICATIONS:NG tube placement FINDINGS: LUNGS/PLEURA:Left lung base opacity. Differential includes pneumonia, edema versus atelectasis. VASCULATURE:Normal. Unremarkable pulmonary vasculature. CARDIAC:Normal. No cardiac silhouette abnormality or cardiomegaly. MEDIASTINUM:Normal. No visible mass or adenopathy. BONES:Normal. No fracture or visible bony lesion. OTHER:NG tube projects over the stomach. Distended small bowel. CONCLUSION:Left lung base infiltrates suggesting pneumonia. NG tube tip projects over the stomach. Dictated by: Joaquin Arce M.D. on 03/04/2019 at 02:40 AM
[2019-03-04] MEDS ORDERED: NS 1000ML 1,000 ML ONE (02:51)
--- NOTE | 2019-03-04 02:52 | NUR ---
[facility] at patients bedside
--- NOTE | 2019-03-04 03:00 | NUR ---
Departure Patient is being transfered to [facility] by [facility]. Patient has mother and father on board. Patient is in stable condtion at time of transfer.
[2019-03-04 03:10] VITALS: BP 118/87
== END 2019-03-04 03:00 | disposition short-term general hospital (02) ==
LOC: ER 23:32
DX: S06.9X0A Unspecified intracranial injury without loss of consciousness, initial encounter (principal); K56.609 Unspecified intestinal obstruction, unspecified as to partial versus complete obstruction; Z79.891 Long term (current) use of opiate analgesic; Z79.899 Other long term (current) drug therapy; Z93.1 Gastrostomy status; Z87.820 Personal history of traumatic brain injury; X58.XXXA Exposure to other specified factors, initial encounter; Y93.89 Activity, other specified; Y92.89 Other specified places as the place of occurrence of the external cause; Y99.8 Other external cause status
CPT/HCPCS: 71045; 74018; 99285; J7030; Q0162

== ENCOUNTER → 2019-03-21 | Outpatient (CLI) | payer MEDICARE, MEDICAID ==
[2019-03-21 10:12] LABS: BASOPHIL % 0.2 % (0.0-0.2); EOSINOPHIL # 0.1 10^3/uL (0.0-0.2); EOSINOPHIL % 1.5 % (0.0-5.0); HEMOGLOBIN 14.4 g/dL (13.9-16.3); LYMPHOCYTES # 0.9 10^3/uL (1.0-4.8); LYMPHOCYTES % 17.1 % (24.0-44.0); MEAN CELL HGB 30.5 pg (26-34); MEAN CORP VOLUME 92.6 fL (78-100); MEAN PLATELET VOLUME 11.1 fL (7.8-11.0); MONOCYTES # 0.6 10^3/uL (0.3-0.8); MONOCYTES % 10.7 % (5.0-12.0); NEUTROPHIL # 3.9 10^3/uL (1.8-7.7); NEUTROPHILS % 70.3 % (41.0-85.0); RED CELL DISTRIBUTION WIDTH 14.4 % (11.5-14.5); WHITE BLOOD CELL 5.5 10^3/uL (4.5-11.0)
[2019-03-21 10:29] LABS: CALCIUM 9.5 mg/dL (8.4-10.5); CARBON DIOXIDE 25.8 mmol/L (20.0-32)
--- NOTE | 2019-03-21 11:09 | DIREP ---
PROCEDURE:XR ABDOMEN 2 VIEWS COMPARISON:[facility], CR, XRAY ABDOMEN 2VW, 03/02/2019, 07:53 AM. [facility], CR, XRAY ABDOMEN SINGLE VW, 03/04/2019, 00:08 AM. INDICATIONS:ABD PAIN TECHNIQUE:Flat and upright views of the abdomen are provided. FINDINGS: BOWEL GAS PATTERN:Mildly dilated small bowel loops throughout the mid abdomen, measuring up to 3.1 cm. Gastrojejunostomy catheter coiled overlying the central abdomen. Fecal residue seen throughout the colon. CALCIFICATIONS:None significant. LUNG BASES:Clear. BONES:Normal. OTHER:No additional findings. CONCLUSION: 1. Dilated small bowel loops throughout the mid abdomen, could represent evolving small bowel obstruction. 2. Gastrojejunostomy catheter coiled overlying the central abdomen. Dictated by: Luis A Johnston MD on 03/21/2019 at 11:13 AM
== END | disposition home or self-care (01) ==
LOC: RAD 09:38
PROVIDERS: ATTEND Pediatrics
DX: K29.70 Gastritis, unspecified, without bleeding (principal)
CPT/HCPCS: 36415; 74019; 80053; 82150; 83690; 85025; 86677